=== PATIENT | female | born 1985 ===

== ENCOUNTER 2022-10-25 07:14 | Emergency (ER) | payer OTHER ==
[~2022-10-25] VITALS: Ht 162.6 cm; Wt 66.8 kg
[2022-10-25 08:21] LABS: COVID AG,FIA SOURCE NASAL SWAB
[2022-10-25 08:56] LABS: INFLUENZA TYPE A NEGATIVE FOR TYPE A (NEGATIVE); INFLUENZA TYPE B NEGATIVE FOR TYPE B (NEGATIVE)
[2022-10-25 13:14] VITALS: BP 137/76
== END 2022-10-25 13:26 | disposition home or self-care (01) ==
LOC: EMS 07:17
DX: R11.2 Nausea with vomiting, unspecified (principal); Z20.822 Contact with and (suspected) exposure to COVID-19
CPT/HCPCS: 87804; 99283